=== PATIENT | male | born 1950 | race Two or more races ===

== ENCOUNTER 2017-04-01 11:00 | Outpatient (RCR) | payer OTHER ==
[~2017-04-01 11:00] MED LIST: ADDERAL20 MG ORAL; TRUVADA 200 MG1 EAC1 ORAL; [UNRECOGNIZED DRUG - OTHER] PO
== END 2017-04-09 | disposition home or self-care (01) ==
LOC: PTY 11:00
PROVIDERS: ATTEND Internal Medicine
DX: M25.569 Pain in unspecified knee (principal)
CPT/HCPCS: 97110; 97162; G0283

== ENCOUNTER 2017-04-17 08:15 | Outpatient (RCR) | payer OTHER | END 2017-05-09 | disposition home or self-care (01) | LOC: PTY 08:15 | PROVIDERS: ATTEND Internal Medicine | DX: M25.561 Pain in right knee (principal) | CPT/HCPCS: 97110; 97140; G0283 ==

== ENCOUNTER 2017-05-19 08:30 | Outpatient (RCR) | payer OTHER | END 2017-06-09 | disposition home or self-care (01) | LOC: PTY 08:30 | PROVIDERS: ATTEND Internal Medicine | DX: M25.569 Pain in unspecified knee (principal) | CPT/HCPCS: 97110; G0283 ==

== ENCOUNTER 2017-05-30 07:50 | Outpatient (RCR) | payer OTHER | END 2017-06-09 | disposition home or self-care (01) | LOC: PTY 07:50 | PROVIDERS: ATTEND Internal Medicine | DX: M54.2 Cervicalgia (principal); G89.29 Other chronic pain; M25.569 Pain in unspecified knee ==

== ENCOUNTER 2017-06-12 07:45 | Outpatient (RCR) | payer OTHER | END 2017-07-10 | disposition home or self-care (01) | LOC: PTY 07:45 | PROVIDERS: ATTEND Internal Medicine | DX: M54.2 Cervicalgia (principal); G89.29 Other chronic pain; M25.569 Pain in unspecified knee ==